=== PATIENT | female | born 1950 | race Caucasian/White ===

== ENCOUNTER 2024-11-30 23:04 | Inpatient (IN) | payer OTHER ==
[2024-11-30 23:11] VITALS: BMI 23.5
[2024-11-30] MEDS ORDERED: ADENOSINE 6 MG/2 ML VIAL IVPUSH ONE (23:30)
[2024-11-30] MEDS ORDERED: ACETAMINOPHEN INJECTION 100 ML ONE (23:31)
[2024-11-30] MEDS ORDERED: CALCIUM GLUCONATE 10% - 1,000 MG/10 ML VIAL ONE (23:41)
[2024-11-30] MEDS ORDERED: dilTIAZem HCL 125 MG/25 ML - 25 ML VIAL ONE (23:43)
[2024-11-30] MEDS: ACETAMINOPHEN 1000 MG/100 ML BAG IVPB ONE (23:55)
[2024-11-30] MEDS: dilTIAZem HCL 50 MG/10 ML - 10 ML VIAL IVPUSH ONE (23:56)
[2024-11-30] MEDS: ADENOSINE 6 MG/2 ML VIAL IVPUSH ONE (23:56)
[2024-11-30] MEDS ORDERED: CEFEPIME HCL/D5W 1 GM/50 ML BAG IVPB ONE (23:57)
[2024-12-01 00:10] LABS: BASOPHILS # 0.09 x10^3/uL (0.01-0.08); EOSINOPHIL % 0.3 % (0.7-5.8); EOSINOPHILS # 0.05 x10^3/uL (0.04-0.36); HEMATOCRIT 36.7 % (34.1-44.9); HEMOGLOBIN 11.6 g/dL (11.2-15.7); MCHC 31.6 g/dl (32.2-35.5); MEAN CELL VOLUME 88.6 fl (79.4-94.8); MEAN PLT VOLUME 10.8 fl (9.4-12.3); MONOCYTE # 1.37 x10^3/uL (0.24-0.86); MONOCYTE % 9.1 % (4.7-12.5); PLATELET COUNT 214 x10^3/uL (182-369); RDW 14.5 % (12.4-16.6)
[2024-12-01] MEDS: CEFEPIME HCL/D5W 1 GM/50 ML BAG IVPB ONE (00:15)
[2024-12-01 00:18] LABS: INR 1.19 (0.83-1.09); PROTHROMBIN TIME (PATIENT) 13.1 SEC (9.7-13.0)
[2024-12-01 00:20] LABS: ACTIVATED PTT 34.5 SECONDS (25.2-36.5)
[2024-12-01 00:28] LABS: EPI CELLS 19 /uL (0-25.1); HYALINE CASTS 1 /uL (0-3.1); URINE APPEARANCE CLEAR; URINE BACTERIA 580 /uL (0-1359); URINE BILIRUBIN NEGATIVE (NEGATIVE); URINE COLOR DK YELLOW; URINE GLUCOSE (UA) NEGATIVE (NEGATIVE); URINE KETONE 1+ (NEGATIVE); URINE LEUK ESTERASE TRACE (NEGATIVE); URINE NITRITE NEGATIVE (NEGATIVE); URINE PROTEIN 1+ (NEGATIVE); URINE RBC 6 /uL (0-23.9); URINE UROBILINOGEN 0.2 mg/dL (0.2-1.0); URINE WBC 26 /uL (0-25.8)
[2024-12-01 00:37] LABS: VENOUS BASE EXCESS -1.4 mmol/L (-2-2); VENOUS O2 SATURATION 48.7 % (70-80); VENOUS PCO2 45.7 mmHg (38-52); VENOUS PH 7.345 (7.310-7.410)
[2024-12-01 00:38] LABS: POTASSIUM 4.6 mmol/L (3.5-5.1)
[2024-12-01] MEDS ORDERED: VANCOMYCIN 1 GM PREMIX (F) 1 GM/200 ML BAG ONE (00:38)
[2024-12-01 00:41] LABS: ALBUMIN 3.8 g/dl (3.4-5.0); BLOOD UREA NITROGEN 26.1 mg/dL (7-18); CALCIUM 9.8 mg/dL (8.5-10.1)
[2024-12-01 00:46] LABS: BILIRUBIN,TOTAL 1.4 mg/dL (0.2-1); TOT PROT 6.2 g/dl (6.4-8.2)
[2024-12-01] MEDS: VANCOMYCIN 1,000 MG in DEXTROSE 5%-WATER - 250 ML IVPB ONE (00:47)
[2024-12-01] MEDS: VANCOMYCIN 1,000 MG in DEXTROSE 5%-WATER - 200 ML IVPB ONE (00:47)
[2024-12-01] MEDS: ADENOSINE 6 MG/2 ML VIAL IVPUSH ONE (00:54)
[2024-12-01] MEDS: CALCIUM GLUCONATE 10% - 1,000 MG/10 ML VIAL IVPUSH ONE (01:13)
[2024-12-01 03:30] LABS: URINE CRYSTALS NONE SEEN /hpf
[2024-12-01 07:13] LABS: ABSOLUTE IMMATURE GRANULOCYTES 0.05 x10^3/uL (0.0-0.031); BASOPHILS # 0.06 x10^3/uL (0.01-0.08); EOSINOPHIL % 0.8 % (0.7-5.8); EOSINOPHILS # 0.09 x10^3/uL (0.04-0.36); HEMATOCRIT 34.2 % (34.1-44.9); HEMOGLOBIN 10.8 g/dL (11.2-15.7); MCHC 31.6 g/dl (32.2-35.5); MEAN CELL VOLUME 89.5 fl (79.4-94.8); MEAN PLT VOLUME 10.9 fl (9.4-12.3); MONOCYTE # 0.97 x10^3/uL (0.24-0.86); PLATELET COUNT 181 x10^3/uL (182-369); RDW 14.4 % (12.4-16.6)
[2024-12-01 07:27] LABS: POTASSIUM 4.2 mmol/L (3.5-5.1)
[2024-12-01 07:33] LABS: ALBUMIN 3.1 g/dl (3.4-5.0)
[2024-12-01 07:36] LABS: TOT PROT 5.4 g/dl (6.4-8.2)
[2024-12-01 07:37] LABS: CALCIUM 9.2 mg/dL (8.5-10.1); CREATININE 0.8 mg/dL (0.55-1.3); MAGNESIUM 1.9 mg/dL (1.8-2.4); PHOSPHOROUS 5.7 mg/dL (2.5-4.9)
[2024-12-01] MEDS: APIXABAN 5 MG TABLET PO SCH (10:29)
[2024-12-01] MEDS: METOPROLOL TARTRATE 25 MG TABLET (FP) PO SCH (10:29)
[2024-12-01] MEDS: CEFEPIME HCL/D5W 1 GM/50 ML BAG IVPB SCH (11:00)
[2024-12-01] MEDS: DEXTROSE 5%-NORMAL SALINE 1,000 ML IV SCH (11:00)
[2024-12-01 12:21] LABS: ARTERIAL BLD GAS O2 SATURATION 99.5 % (95-98); ARTERIAL BLOOD GAS BASE EXCESS 2.1 mmol/L (-2-2); ARTERIAL BLOOD GAS PO2 228.9 mmHg (80-100); ARTERIAL BLOOD GAS pH 7.425 (7.350-7.450)
[2024-12-01 12:23] LABS: ALLENS TEST POSITIVE
[2024-12-01] MEDS: CLINDAMYCIN HCL 150 MG CAPSULE (FP) PO SCH (15:29)
[2024-12-01] MEDS: CEFEPIME 1 GM in DEXTROSE 5%-WATER 100 ML IVPB SCH (18:09)
[2024-12-01] MEDS: CEFEPIME HCL 1 GM VIAL (RESTRICTED TO ID) IVPB SCH (18:43)
[2024-12-01] MEDS: LORazepam 0.5 MG TABLET PO PRN (22:30)
[2024-12-02] MEDS: VANCOMYCIN HCL IN 5 % DEXTROSE 1,250 MG/250 ML BAG IV SCH (00:20)
[2024-12-02 07:34] LABS: ABSOLUTE IMMATURE GRANULOCYTES 0.03 x10^3/uL (0.0-0.031); BASOPHILS # 0.05 x10^3/uL (0.01-0.08); EOSINOPHIL % 5.5 % (0.7-5.8); EOSINOPHILS # 0.42 x10^3/uL (0.04-0.36); HEMATOCRIT 35.2 % (34.1-44.9); HEMOGLOBIN 10.8 g/dL (11.2-15.7); MCHC 30.7 g/dl (32.2-35.5); MEAN CELL VOLUME 89.3 fl (79.4-94.8); MEAN PLT VOLUME 9.9 fl (9.4-12.3); MONOCYTE % 11.8 % (4.7-12.5); PLATELET COUNT 155 x10^3/uL (182-369); RDW 14.5 % (12.4-16.6)
[2024-12-02 08:09] LABS: BLOOD UREA NITROGEN 11.4 mg/dL (7-18); CALCIUM 8.6 mg/dL (8.5-10.1); TOT PROT 5.6 g/dl (6.4-8.2)
[2024-12-02 08:11] LABS: ALBUMIN 3.1 g/dl (3.4-5.0); MAGNESIUM 1.9 mg/dL (1.8-2.4)
[2024-12-02 08:13] LABS: CREATININE 0.5 mg/dL (0.55-1.3); PHOSPHOROUS 4.1 mg/dL (2.5-4.9)
[2024-12-02] MEDS ORDERED: metoPROLOL SUCCINATE 25 MG TAB.SR.24H (FP) PO ONE (13:15)
[2024-12-02] MEDS: metoPROLOL SUCCINATE 25 MG TAB.SR.24H (FP) PO ONE (14:18)
[2024-12-02] MEDS: METOPROLOL TARTRATE 25 MG TABLET (FP) PO SCH (21:24)
[2024-12-02] MEDS: LORazepam 2 MG/ML SDV VIAL IVPUSH PRN (21:46)
[2024-12-02] MEDS: HALOPERIDOL 0.5 MG TABLET PO PRN (23:15)
[2024-12-03 08:02] LABS: HEMATOCRIT 42.6 % (34.1-44.9); MCHC 30.5 g/dl (32.2-35.5); MEAN CELL VOLUME 90.4 fl (79.4-94.8); MEAN PLT VOLUME 11.1 fl (9.4-12.3); PLATELET COUNT 167 x10^3/uL (182-369); RDW 14.6 % (12.4-16.6)
[2024-12-03 08:21] LABS: POTASSIUM 4.4 mmol/L (3.5-5.1)
[2024-12-03 08:22] LABS: BLOOD UREA NITROGEN 9.1 mg/dL (7-18); CALCIUM 9.2 mg/dL (8.5-10.1)
[2024-12-03 08:26] LABS: CREATININE 0.6 mg/dL (0.55-1.3)
[2024-12-03 08:27] LABS: ALBUMIN 3.7 g/dl (3.4-5.0); BILIRUBIN,TOTAL 1.4 mg/dL (0.2-1); TOT PROT 6.8 g/dl (6.4-8.2)
[2024-12-03] MEDS: METOPROLOL TARTRATE 25 MG TABLET (FP) PO SCH (13:48)
[2024-12-03] MEDS ORDERED: METOPROLOL TARTRATE 25 MG TABLET (FP) PO SCH (14:00)
[2024-12-03] MEDS: METOPROLOL TARTRATE 25 MG TABLET (FP) PO ONE (18:29)
[2024-12-03] MEDS: METOPROLOL TARTRATE 50 MG TABLET (FP) PO SCH (21:17)
[2024-12-04 08:15] LABS: POTASSIUM 4.2 mmol/L (3.5-5.1)
[2024-12-04 08:18] LABS: ALBUMIN 3.2 g/dl (3.4-5.0); CALCIUM 8.3 mg/dL (8.5-10.1)
[2024-12-04 08:19] LABS: BLOOD UREA NITROGEN 10.8 mg/dL (7-18); MAGNESIUM 2.1 mg/dL (1.8-2.4)
[2024-12-04 08:21] LABS: CREATININE 0.5 mg/dL (0.55-1.3)
[2024-12-04 08:23] LABS: TOT PROT 5.6 g/dl (6.4-8.2)
[2024-12-04 08:32] LABS: HEMATOCRIT 38.9 % (34.1-44.9); HEMOGLOBIN 12.1 g/dL (11.2-15.7); MCHC 31.1 g/dl (32.2-35.5); MEAN CELL VOLUME 89.4 fl (79.4-94.8); MEAN PLT VOLUME 10.1 fl (9.4-12.3); PLATELET COUNT 182 x10^3/uL (182-369); RDW 14.3 % (12.4-16.6)
[2024-12-04] MEDS: DIGOXIN 0.5 MG/2 ML AMPUL IVPUSH ONE ×2 (10:40→18:34)
[2024-12-04] MEDS: DIGOXIN 0.125 MG TABLET PO SCH (15:40)
[2024-12-04] MEDS: ACETAMINOPHEN 325 MG TABLET (FP) PO PRN (15:40)
[2024-12-04] MEDS: BISACODYL 10 MG SUPP.RECT PR PRN (18:33)
[2024-12-04] MEDS: ONDANSETRON 4 MG TABLET PO PRN (19:31)
[2024-12-05 07:50] LABS: HEMATOCRIT 36.4 % (34.1-44.9); HEMOGLOBIN 11.5 g/dL (11.2-15.7); MCHC 31.6 g/dl (32.2-35.5); MEAN CELL VOLUME 88.1 fl (79.4-94.8); MEAN PLT VOLUME 10.5 fl (9.4-12.3); PLATELET COUNT 195 x10^3/uL (182-369)
[2024-12-05 09:09] LABS: POTASSIUM 3.9 mmol/L (3.5-5.1)
[2024-12-05 09:34] LABS: CALCIUM 8.6 mg/dL (8.5-10.1)
[2024-12-05 09:35] LABS: ALBUMIN 3.4 g/dl (3.4-5.0)
[2024-12-05 09:38] LABS: CREATININE 0.5 mg/dL (0.55-1.3)
[2024-12-05 09:39] LABS: TOT PROT 5.9 g/dl (6.4-8.2)
[2024-12-06 06:14] VITALS: RESP 20
[2024-12-06 07:08] LABS: HEMATOCRIT 39.4 % (34.1-44.9); HEMOGLOBIN 12.2 g/dL (11.2-15.7); MEAN CELL VOLUME 87.6 fl (79.4-94.8); MEAN PLT VOLUME 10.2 fl (9.4-12.3); PLATELET COUNT 193 x10^3/uL (182-369); RDW 14.1 % (12.4-16.6)
[2024-12-06 07:37] LABS: POTASSIUM 3.3 mmol/L (3.5-5.1)
[2024-12-06 07:39] LABS: CALCIUM 8.5 mg/dL (8.5-10.1)
[2024-12-06 07:40] LABS: ALBUMIN 3.4 g/dl (3.4-5.0); BLOOD UREA NITROGEN 9.2 mg/dL (7-18)
[2024-12-06 07:43] LABS: CREATININE 0.5 mg/dL (0.55-1.3)
[2024-12-06 07:44] LABS: BILIRUBIN,TOTAL 0.9 mg/dL (0.2-1)
[2024-12-06] MEDS: KCL 10 MEQ IVPB 10 MEQ/100 ML INFUS.BAG IVPB SCH (12:01)
[2024-12-06 15:35] VITALS: BP 126/79; PULSE 125; TEMP 97.7
== END 2024-12-06 20:54 | disposition short-term general hospital (02) | DRG 871 ==
LOC: JER 23:04 → JERBED 12-01 03:49 → J4S 12-01 06:54
PROVIDERS: ADMIT Student in an Organized Health Care Education/Training Program
DX: A41.9 Sepsis, unspecified organism (principal); E43 Unspecified severe protein-calorie malnutrition; J18.9 Pneumonia, unspecified organism; J96.01 Acute respiratory failure with hypoxia; I24.89 Other forms of acute ischemic heart disease; C90.00 Multiple myeloma not having achieved remission; I50.22 Chronic systolic (congestive) heart failure; E87.0 Hyperosmolality and hypernatremia; E11.9 Type 2 diabetes mellitus without complications; I11.0 Hypertensive heart disease with heart failure; N28.1 Cyst of kidney, acquired; I48.0 Paroxysmal atrial fibrillation; M79.605 Pain in left leg; R74.01 Elevation of levels of liver transaminase levels; E88.09 Other disorders of plasma-protein metabolism, not elsewhere classified; F41.9 Anxiety disorder, unspecified; G47.00 Insomnia, unspecified; D63.8 Anemia in other chronic diseases classified elsewhere; Z68.21 Body mass index [BMI] 21.0-21.9, adult
CPT/HCPCS: 0241U-QW; 36415; 36600; 70450-TC; 71045-TC-FY; 74018-TC-FY; 76705-TC; 80053; 80162; 81003; 82803; 82962; 83605; 83735; 84100; 84439; 84443; 84484; 85025; 85027; 85610; 85730; 87040; 87086; 93005; 93010; 93306-TC; 93971-TC; 97116-GP; 97161-GP; 99285-25; G0480; J0131